=== PATIENT | male | born 1945 | race Caucasian/White ===

== ENCOUNTER → 2016-10-07 | Day surgery (SDC) | payer MEDICARE ==
[2016-10-07 13:22] LABS: INR 1.2 (<1.2); Partial Thromboplastin Time 23.7 sec (22.0-30.0); Prothrombin Time 11.6 sec (9.0-12.0)
--- NOTE | 2016-10-07 15:09 | USB ---
EXAMINATION TYPE: US biopsy breast VAD LT, MG diagnostic mammo LT wo CAD DATE OF EXAM: 10/07/2016 CLINICAL HISTORY: N63 Breast Mass. TECHNIQUE: Ultrasound guided core biopsy of left breast. COMPARISON: Outside ultrasound dated 09/18/2016. FINDINGS: The procedure of ultrasound guided core biopsy was explained to the patient. Benefits, alternatives, and risks were discussed. An informed consent was then obtained. The patient was placed in supine positioning for imaging and for the procedure. The overlying skin was prepped and draped in usual sterile fashion. 9 cc of 1% lidocaine without epinephrine was used as anesthetic into the skin and subcutaneous tissue up to area of concern in the retroareolar left breast. A hali was made with surgical scalpel. Under ultrasound guidance, a 12-gauge vacuum assisted biopsy gun device was used to obtain 6 core samples. Following this, a ribbon-shaped biopsy clip was left in lesion. The patient tolerated the procedure well without any immediate complication. The patient was kept in the radiology department for short stay after the procedure and then discharged home in stable condition. IMPRESSION: Successful, uncomplicated ultrasound guided core biopsy of area of concern in the left breast, full pathology results to follow. Pathology Results: Malignant BREAST, LEFT, ULTRASOUND GUIDED CORE BIOPSY: INVASIVE DUCTAL CARCINOMA. Recommendation Surgical consult of the left breast. ELIE
[2016-10-07 16:09] VITALS: BP 125/81; PULSE 66; RESP 16; TEMP 97.9
== END ==
LOC: RADUSWWP 12:23
PROVIDERS: ATTEND Surgery
DX: C50.922 Malignant neoplasm of unspecified site of left male breast (principal)
CPT/HCPCS: 85610; 85730; 19083; 36415; G0206; A4648; J2001; 88305

== ENCOUNTER → 2017-09-01 | Outpatient (CLI) | payer MEDICARE ==
--- NOTE | 2017-09-02 13:10 | USB ---
Reason for exam: clinical finding. History: Patient has history of breast cancer at age 71. Malignant US biopsy breast VAD LT of the left breast, October 07, 2016. Indicated problem(s): palpable abnormality in the left breast. Physical Findings: Nurse did not find any significant physical abnormalities on exam. US Breast Axilla LT Left breast axilla ultrasound demonstrates a 3.0cm seroma at the axilla. The left axilla was scanned. Patient status post left mastectomy. These results were verbally communicated with the patient and result sheet given to the patient on 09/01/17. ASSESSMENT: Benign, BI-RAD 2 RECOMMENDATION: Clinical management of the left breast. (routine clinical follow up) Manage on a clinical basis with regard to patient's small 3cm seroma. If it is symptomatic, aspiration can be performed.
== END | disposition home or self-care (01) ==
LOC: RADUSWWP 11:55 → EDSTATUS 12:20
PROVIDERS: ATTEND Family Medicine
DX: C50.022 Malignant neoplasm of nipple and areola, left male breast (principal)

== ENCOUNTER 2017-09-09 08:43 | Day surgery (SDC) | payer MEDICARE ==
[2017-09-09 09:10] VITALS: RESP 16; TEMP 97.5
[2017-09-09 10:14] VITALS: BP 147/75; PULSE 88
--- NOTE | 2017-09-09 10:28 | US ---
Ultrasound-guided left axilla seroma FNA DATE OF EXAM: 09/09/2017 CLINICAL HISTORY: Request for FNA of left axilla seroma The procedure was discussed with the patient. The risks, complications, benefits, and alternatives we re discussed and any questions were answered. Informed consent was obtained. The patient was placed s upine on the ultrasound table and prepped and draped in the usual sterile fashion. All elements of maximal barrier technique were utilized. Under ultrasound guidance, access into the axilla small fluid collection was obtained, and there is removal of approximately 10 to 15 cc of yell ow serous fluid. No residual collection post drainage. The patient was stable throughout the procedure and remained stable upon discharge from Department of Radiology. IMPRESSION: Successful ultrasound-guided left axilla seroma FNA.
== END 2017-09-09 10:16 | disposition home or self-care (01) ==
LOC: RADPROMAIN 08:43
PROVIDERS: ATTEND Family Medicine
DX: C50.022 Malignant neoplasm of nipple and areola, left male breast (principal); N64.89 Other specified disorders of breast
CPT/HCPCS: 10022; 10030; 76942

== ENCOUNTER → 2018-10-15 | Outpatient (CLI) | payer MEDICARE ==
[2018-10-15 13:04] LABS: INR 1.1 (<1.2)
[2018-10-15 13:05] LABS: Prothrombin Time 11.8 sec (9.0-12.0)
== END | disposition home or self-care (01) ==
LOC: LABWHC1 12:24
PROVIDERS: ATTEND Dentist Oral and Maxillofacial Surgery
DX: D68.9 Coagulation defect, unspecified (principal)
CPT/HCPCS: 36415; 85610

== ENCOUNTER → 2020-01-03 | Outpatient (CLI) | payer MEDICARE ==
[2020-01-03 08:52] LABS: INR 1.1 (<1.2); Prothrombin Time 11.6 sec (9.0-12.0)
== END | disposition home or self-care (01) ==
LOC: LABWHC1 08:09
PROVIDERS: ATTEND Dentist Oral and Maxillofacial Surgery
DX: Z51.81 Encounter for therapeutic drug level monitoring (principal); Z79.01 Long term (current) use of anticoagulants
CPT/HCPCS: 36415; 85610